=== PATIENT | female | born 2000 | race Caucasian/White ===

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

== ENCOUNTER 2020-10-12 17:43 | Emergency (ER) | payer OTHER ==
[2020-10-12 17:58] VITALS: BP 118/77; PULSE 117; TEMP 97.8; BMI 24.8
== END 2020-10-12 20:30 | disposition home or self-care (01) ==
LOC: JER 17:43 → JERFT 17:43
DX: N90.89 Other specified noninflammatory disorders of vulva and perineum (principal); A60.04 Herpesviral vulvovaginitis
CPT/HCPCS: 87252; 99283-25